=== PATIENT | female | born 1950 | race Caucasian/White ===

== ENCOUNTER 2018-01-28 01:20 | Inpatient (IN) | payer MEDICARE, OTHER ==
[~2018-01-28] VITALS: Ht 162.6 cm; Wt 91.6 kg
[2018-01-28] VITALS (19 sets, daily range): BP systolic 89–135; BP diastolic 61–81
[~2018-01-28 01:20] MED LIST: ACET-3160 PO; CALC1TAB32 PO; CHOL10005 PO; DOCU-416 PO; DULO60CA56 PO; ESOM40CA42 PO; GABA-549 PO; HYDR-2966 PO; LOSA50TA72 PO; MULT-61 PO; OM-31CAP12 PO; SIMV-54 PO
[2018-01-28] MEDS ORDERED: MIDAZOLAM 2 MG/2 ML VIAL IVP PRN (06:00)
[2018-01-28] MEDS ORDERED: NORMOSOL R SOLN(*) 1000 ML BAG 1,000 ML IV PRN (06:00)
[2018-01-28] MEDS ORDERED: ceFAZolin(*) 2GM/D5W 50ML 50 ML IVPB ONE (06:00)
[2018-01-28] MEDS ORDERED: ACETAMINOPHEN 500 MG TAB PO ONE (06:00)
[2018-01-28] MEDS ORDERED: LIDOCAINE/SOD BICARB 8.4% SYR ID ONE (06:00)
[2018-01-28] MEDS ORDERED: METOCLOPRAMIDE 10 MG/2 ML SDV ONE (06:13)
[2018-01-28] MEDS ORDERED: LIDOCAINE MPF 1% 5 ML VIAL ONE (06:13)
[2018-01-28] MEDS ORDERED: PROPOFOL EMUL(*) 10MG/ML 20 ML 20 ML ONE (06:13)
[2018-01-28] MEDS ORDERED: DEXAMETHASONE SOD PHOS 10MG/ML ONE (06:13)
[2018-01-28] MEDS ORDERED: ONDANSETRON 4 MG/2 ML VIAL ONE (06:13)
[2018-01-28] MEDS ORDERED: fentaNYL CITR 250 MCG/5 ML AMP ONE (06:16)
[2018-01-28] MEDS ORDERED: THROMBIN (BOVINE) 20,000 UNIT VIAL ONE (06:19)
[2018-01-28] MEDS ORDERED: ACETAMINOPHEN(*)1000 MG/100 ML 100 ML IVPB ONE (06:24)
[2018-01-28] MEDS ORDERED: PROPOFOL(*)1000 MG/100 ML VIAL 100 ML ONE (06:26)
[2018-01-28] MEDS ORDERED: ROCURONIUM BROM 10 MG/ML 10 ML ONE (07:00)
--- NOTE | 2018-01-28 09:23 | RADIOLOGY IMAGING REPORT ---
FACILITY: [facility] PATIENT NAME: Carla Edwards : 1950 MR: [id number] V: [id number] EXAM DATE: ORDERING PHYSICIAN: TANGELA HAILE TECHNOLOGIST[place] [facility] [place] : 1950 Visit/Account:[id number] Date of Sevice: 01/28/2018 Examination: Lumbar spine single view HISTORY: Laminectomy and lumbar fusion. FINDINGS: 3 lateral images are obtained portably of the lumbar spine intraoperatively. On the first i mage, a surgical instrument overlies the dorsal soft tissues at the L4 level. There is degenerative d isc disease at L4-L5 with grade 1 anterolisthesis. On the second image, additional surgical instrumen ts overlie the dorsal soft tissues with gauze material. An instrument overlies the pedicle and verteb ral body of L4. On the third image, there has been posterior instrumented fusion performed at L4-L5 w ith pedicle screws and vertical rods. The anterolisthesis has been reduced. IMPRESSION: 1. Multiple intraoperative lateral views of the lumbar spine during lumbar fusion procedure as report ed above. Report Dictated By: Nomi Reynolds at 01/28/2018 9:16 AM Report E-Signed By: Nomi Reynolds at 01/28/2018 9:19 AM WSN:[email or web address]
[2018-01-28] MEDS ORDERED: ROPIVACAINE 0.2% 20 ML VIAL ONE (09:27)
[2018-01-28] MEDS ORDERED: fentaNYL CITR 100 MCG/2 ML AMP ONE (10:12)
[2018-01-28] MEDS ORDERED: LR(*) 1000 ML BAG 1,000 ML IV PRN (10:40)
[2018-01-28] MEDS ORDERED: ACETAMINOPHEN 500 MG TAB PO PRN (10:55)
[2018-01-28] MEDS ORDERED: oxyCODONE HCL 5 MG CAP PO PRN (10:55)
[2018-01-28] MEDS ORDERED: DIAZEPAM 5 MG TAB PO PRN (10:55)
[2018-01-28] MEDS ORDERED: BISACODYL 10 MG SUPP PR PRN (10:55)
[2018-01-28] MEDS ORDERED: FLUSH 10 ML SYR IVP PRN (10:55)
[2018-01-28] MEDS ORDERED: BENZOCAINE/MENTHOL 1 EACH LOZG PO PRN (10:55)
[2018-01-28] MEDS ORDERED: ONDANSETRON 4 MG/2 ML VIAL IVP PRN (10:55)
[2018-01-28] MEDS ORDERED: MAGNESIUM HYDROXIDE* 30ML UDCP PO PRN (10:55)
[2018-01-28] MEDS ORDERED: diphenhydrAMINE 25 MG CAP PO PRN (10:55)
[2018-01-28] MEDS ORDERED: ACETAMINOPHEN(*)1000 MG/100 ML 100 ML IVPB PRN (10:55)
[2018-01-28] MEDS: HYDROmorphone HCL 2 MG/ML SDV IVP PRN (11:32)
--- NOTE | 2018-01-28 12:13 | Hospitalist Consultation ---
History of Present Illness Requesting Physician Dr. Dennis Reason for Consult Hypertension, Hyperlipidemia Chief Complaint s/p lumbar fusion History of Present Illness She was admitted s/p lumbar fusion. It is reported the surgery went well and without complication. History Problems: (1) GERD (gastroesophageal reflux disease) Status: Chronic (2) Hyperlipidemia Status: Chronic (3) Hypertension Status: Chronic (4) Vitiligo Home Meds Reported Medications Losartan Potassium (LOSARTAN POTASSIUM) 50 Mg Tablet, 50 MG PO HS 01/21/18 Gabapentin (GABAPENTIN) 300 Mg Capsule, 300 MG PO TID, CAPSULE 01/21/18 Multivitamin/Iron/Folic Acid (Centrum Women Tablet) 18 Mg Iron-400 Mcg Tablet, 1 TAB PO HS 01/21/18 Docusate Sodium (COLACE) 100 Mg Capsule, 100 MG PO BID, CAPSULE 01/21/18 Calcium Carb & Cit/Vitamin D3 (CALCIUM + D3 ER TABLET) 1 Each Tablet.er, 1 EACH PO BID 01/21/18 Cholecalciferol (Vitamin D3) (VITAMIN D3) 1,000 Unit Tablet, 2 TAB PO DAILY, TAB 01/21/18 Om-3/Epa/Dha/Fish Oil/Flax/E (THERA TEARS NUTRITION CAPSULE) 1 Each Capsule, 1 EACH PO DAILY, CAPSULE 01/21/18 Acetaminophen (ARTHRITIS PAIN RELIEF) 650 Mg Tablet.er, 2 TAB PO HS 01/21/18 Acetaminophen (ARTHRITIS PAIN RELIEF) 650 Mg Tablet.er, 3 TAB PO MORNING 01/21/18 Simvastatin (SIMVASTATIN) 40 Mg Tablet, 40 MG PO HS, TAB 01/21/18 Hydrochlorothiazide (HYDROCHLOROTHIAZIDE) 25 Mg Tablet, 1 TAB PO QDAY, TAB 01/21/18 Esomeprazole Magnesium (NEXIUM) 40 Mg Capsule.dr, 1 CAP PO QDAY, CAP 01/21/18 Duloxetine Hcl (CYMBALTA) 60 Mg Capsule.dr, 60 MG PO QDAY, #5 CAP 01/21/18 Allergies: Coded Allergies: clindamycin (Verified Allergy, Severe, RASH, 01/21/18) Hx Smoking: No Smoking Status: Never Smoker Caffeine Intake: Soda Caffeine/Cups Per Day: 3 Hx Alcohol Use: Yes (just social) Alcohol Used: Beer, Wine, Liquor Hx Substance Use Disorder: No Social Drug Use: Never History of IV Drug Use: No Review of Systems All Systems Reviewed/Normal: Yes, Except as Noted Exam Vital Signs Vital Signs Date Time Temp Pulse Resp B/P (MAP) Pulse Ox O2 Delivery O2 Flow Rate FiO2 01/28/18 11:45 14 106/67 (80) Nasal Cannula 3.0 01/28/18 11:30 78 93 01/28/18 11:10 97.5 General Appearance: Alert, Awake, No Acute Distress, Afebrile Neuro: No Gross deficits Cardiovascular: Regular Rate and Rhythm Respiratory: No Respiratory Distress, Clear to Auscultation GI: Abd Soft and Non-Tender Extremities: Warm, Perfused Psych: Alert & Oriented X3, Appropriate Mood & Affect Assessment and Plan Problems: (1) S/P lumbar fusion Status: Acute Assessment & Plan: Followed by Dr. Dennis. (2) Hypertension Status: Chronic Assessment & Plan: She is on chronic treatment with Valsartan. This has been restarted with hold parameters. (3) Hyperlipidemia Status: Chronic Assessment & Plan: She is on chronic treatment with Simvastatin. (4) GERD (gastroesophageal reflux disease) Status: Chronic Assessment & Plan: She is on chronic treatment with Nexium. She will be placed on Protonix during admission. Venous Thromboembolism Antithrombotics Is Pt On Any Antithrombotics?: No JOSE BRANTLEY Jan 28, 2018 12:13
[2018-01-28] MEDS ORDERED: VAL80 PO (12:15)
[2018-01-28] MEDS: GABAPENTIN 300 MG CAP PO SCH ×2 (14:12→20:28)
[2018-01-28] MEDS: APAP/HYDROCODONE 325/5 TAB PO PRN ×3 (14:13→22:21)
--- NOTE | 2018-01-28 14:48 | OPERATIVE REPORT 1 ---
EVENT DATE: January 28, 2018 SURGEON: Elias Dennis MD ANESTHESIOLOGIST: Nasir Oneil MD ANESTHESIA: General endotracheal cover remover: Valeriano El PA-C PREOPERATIVE DIAGNOSES 1. L4-L5 spondylolisthesis. 2. L4-L5 spinal stenosis. 3. Neurogenic claudication. POSTOPERATIVE DIAGNOSES 1. L4-L5 spondylolisthesis. 2. L4-L5 spinal stenosis. 3. Neurogenic claudication. PROCEDURES PERFORMED 1. L4-L5 laminectomy. 2. L4-L5 posterolateral instrumented fusion. INTRAVENOUS FLUIDS 2100 mL ESTIMATED BLOOD LOSS 140 mL IMPLANTS USED Reline pedicle screws 6.5 mm x 45 mm from [employer] times four, 40 mm connecting rods from [employer] times two, and locking caps from [employer] times four. SPECIMENS None. DRAINS None. COMPLICATIONS None. DISPOSITION Post-anesthesia care unit. INDICATIONS FOR SURGERY Ms. Edwards is a 67-year-old female with right lower extremity radiating pain , numbness, and tingling in an L5 distribution. She also had some back pain and noted some improvement in radiating symptoms with gabapentin, but was still symptomatic, affecting her lifestyle. Her physical examination revealed good range of motion and normal strength and sensation apart from some decreased sensation in the sural nerve distribution on the right. Diagnostic studies showed a grade 1 spondylolisthesis at L4-L5 and severe spinal stenosis at that level as well. The spondylolisthesis reduced to a degree when lying supine in the MRI. Secondary to failure of nonsurgical care and ongoing pain, Ms. Edwards was offered and elected to undergo an L4-L5 laminectomy and posterolateral instrumented fusion. Prior to surgery, I explained in detail to the patient the possible risks of surgery. These included the risks of bleeding, infection, damage to surrounding structures, nerve root injury, spinal fluid leak, meningitis, , blindness, sexual dysfunction, autonomic nervous system dysfunction, and other unforeseen medical and surgical complications. An understanding that spinal surgery is more predictive at improving extremity discomfort than axial spine pain was stressed. DESCRIPTION OF PROCEDURE On the date of surgery, the patient was met in the preoperative hold area, and all questions were answered. Her operative site was identified and marked by myself. The patient was brought in good condition to the operating room, and after succumbing to anesthesia, was placed in the prone position on a Jc table. Care was taken to maintain appropriate perfusion pressures during anesthesia. All bony protuberances and soft tissues were well padded in the standard fashion. Preoperative antibiotics were administered according to the appropriate timing schedule. At the conclusion of the procedure, sponge and needle counts were correct times two. Final timeout was undertaken by members of the operating team to confirm correct patient, correct levels, and correct surgery. We then made an incision over the intended spinal levels, and sharp dissection was carried out through the soft tissues to the posterior elements. Soft tissues were elevated off the posterior elements in a subperiosteal manner, and a lateral radiograph was obtained to confirm correct spinal levels. Self-retaining retractors were placed, and exposure out to the tips of the transverse processes of L4 and L5 was accomplished using the electrocautery device. Starting points for pedicle screws were identified at approximately the intersection of the pars interarticularis, the mid point of the transverse process, and the lateral aspect of the facet joint. Attention was then turned to the laminectomy. The spinous process of L4 was removed using a Leksell rongeur. A combination of the Leksell rongeur and a high-speed markos was used to thin the lamina of L4. A curved curette was used to undermine the superior insertion of the ligamentum flavum from the inferior aspect of the L4 lamina. [place]go elevator was used to separate any dural adhesions from surrounding bone and soft tissue prior to use of the Kerrison punch. Kerrisons #3 and #4 were used to perform a midline decompression. We then performed bilateral lateral recess decompressions, again using #4 and #3 Kerrisons. At the conclusion of the decompression, a [place] elevator was passed around the pedicles of L4 and L5 to confirm decompression of the nerve roots in the foramina as well as in the lateral recesses at the L4-L5 level. We then identified our starting points for pedicle screws bilaterally at L4 and L5. A 5 mm high-speed markos was used to decorticate the starting point. A Lenke -type probe was then advanced against resistance through the isthmus of the pedicle and into the vertebral body. A ball-tipped feeler was used to palpate the mcghee of the pedicles superiorly, inferiorly, medially, and laterally, as well as distally to confirm absence of bony breaching. Pedicle screws 6.5 mm x 45 mm were selected and placed bilaterally at L4 and L5 using this technique. Neurophysiologic monitoring was used to test the screws, which all tested well within the range of acceptable limits to confirm absence of bony breaching. Screw heads were adjusted appropriately, and 40 mm connecting rods were placed. A reduction maneuver was performed and locking caps applied. The wound was then irrigated with copious sterile saline solution, and meticulous hemostasis was obtained. The transverse processes of L4 and L5 were decorticated with a high-speed markos, and the local bone that we had milled down from the laminectomy was then placed in the lateral gutters bilaterally. The locking caps on the pedicle screws were then finally tightened with the torque-limiting device, and the wound was then closed in layers using interrupted sutures for the deep fascia, interrupted sutures for the subcutaneous tissue, and then a running subcuticular skin stitch. Sponge and needle counts were correct times two. POSTOPERATIVE CARE PLAN The patient will remain in the hospital until she meets discharge criteria. She will follow up with me in two weeks' time for wound check and examination. SARAH
[2018-01-28] MEDS: ceFAZolin(*) 2GM/D5W 50ML 50 ML IVPB SCH (17:11)
[2018-01-28] MEDS: DOCUSATE SODIUM 100 MG CAP PO SCH (20:28)
[2018-01-28] MEDS ORDERED: SIMVASTATIN 40 MG TAB PO SCH (21:00)
[2018-01-28] MEDS ORDERED: VALSARTAN 80 MG TAB PO SCH (21:00)
[2018-01-29] VITALS (8 sets, daily range): BP systolic 87–106; BP diastolic 63–73; Ht 162.6 cm; Wt 91.6 kg
[2018-01-29] MEDS: HYDROmorphone HCL 2 MG/ML SDV IVP PRN (01:09)
[2018-01-29] MEDS: ceFAZolin(*) 2GM/D5W 50ML 50 ML IVPB SCH ×2 (01:10→09:26)
[2018-01-29] MEDS: APAP/HYDROCODONE 325/5 TAB PO PRN ×2 (05:32→10:38)
[2018-01-29] MEDS ORDERED: LOR5/325 PO (07:36)
[2018-01-29] MEDS ORDERED: DIA5 PO (07:36)
[2018-01-29] MEDS ORDERED: DOCU240C84 PO (07:38)
[2018-01-29] MEDS ORDERED: PANTOPRAZOLE SOD 40 MG TABEC PO SCH (09:00)
[2018-01-29] MEDS ORDERED: DULoxetine HCL 30 MG CAPCR PO SCH (09:00)
[2018-01-29] MEDS: DOCUSATE SODIUM 100 MG CAP PO SCH (09:26)
[2018-01-29] MEDS: GABAPENTIN 300 MG CAP PO SCH (09:27)
[2018-01-29] MEDS ORDERED: LOSA50TA72 PO (09:59)
--- NOTE | 2018-01-29 10:09 | RADIOLOGY IMAGING REPORT ---
FACILITY: [facility] [place] PATIENT NAME: Carla Edwards : 1950 MR: [id number] V: [id number] EXAM DATE: ORDERING PHYSICIAN: TANGELA HAILE TECHNOLOGIST: Location: [facility] [place] Patient: Carla Edwards : 1950 Visit/Account:[id number] Date of Sevice: 01/29/2018 LUMBAR SPINE 2 OR 3 VIEW Indication: status post lami Comparison: Lumbar spine radiograph from the operating room 01/28/2018 Findings: There are postoperative changes from a posterior instrumentation and fusion hardware at L4 and L5. Remaining vertebral bodies and posterior elements are intact. There is mild anterolisthesis L5-S1, measuring 4 mm. IMPRESSION: Postoperative changes with posterior instrumentation and fusion hardware at L4-5. Report Dictated By: George Escalante at 01/29/2018 10:03 AM Report E-Signed By: George Escalante at 01/29/2018 10:04 AM WSN:[id number]
--- NOTE | 2018-01-29 11:20 | Hospitalist Progress Note ---
Subjective Progress Notes Subjective She has no complaints this morning. She had no acute events overnight. Patient Complains of: Cardiovascular: No: Chest Pain Respiratory: No: Shortness of Breath Physical Exam Vital Signs Date Time Temp Pulse Resp B/P (MAP) Pulse Ox O2 Delivery O2 Flow Rate FiO2 01/29/18 08:41 82 01/29/18 08:11 Room Air 01/29/18 07:59 2.0 01/29/18 07:00 68 106/65 (79) 01/29/18 05:00 98.6 01/28/18 12:00 12 Intake and Output 01/30/18 01:00 Intake Total 300 ml Balance 300 ml Intake Oral 250 ml IV Total 50 ml # Voids 1 General Appearance: Alert, Awake, No Acute Distress, Afebrile Neuro: No Gross deficits Cardiovascular: Regular Rate and Rhythm Respiratory: No Respiratory Distress, Clear to Auscultation Psych: Alert & Oriented X3, Appropriate Mood & Affect Assessment and Plan Problems: (1) S/P lumbar fusion Status: Acute Assessment & Plan: Followed by Dr. Dennis. (2) Hypertension Status: Chronic Assessment & Plan: She is on chronic treatment with Losartan and hydrochlorothiazide. This has been restarted with hold parameters. She was given detailed instructions verbally and written for her blood pressure medications. She will check her blood pressure daily at home. If her systolic blood pressure reaches 140, she will then start Losartan. She will follow up with Primary Care Physician next week or sooner for further directions of hypertension medications. (3) Hyperlipidemia Status: Chronic Assessment & Plan: She is on chronic treatment with Simvastatin. (4) GERD (gastroesophageal reflux disease) Status: Chronic Assessment & Plan: She is on chronic treatment with Nexium. Exam Sepsis Risk: No Definite Risk JOSE BRANTLEY RESIDENTIAL COORDINATOR Jan 29, 2018 11:20
== END 2018-01-29 11:45 | disposition home or self-care (01) | DRG 460 ==
LOC: OR 01:20 → MED 11:10
PROVIDERS: ADMIT Orthopaedic Surgery; ATTEND Orthopaedic Surgery
PROC: 0SG0071 Fusion of Lumbar Vertebral Joint with Autologous Tissue Substitute, Posterior Approach, Posterior Column, Open Approach (ICD-10-PCS; principal; 2018-01-28 06:59)
DX: M43.16 Spondylolisthesis, lumbar region (principal); M48.062 Spinal stenosis, lumbar region with neurogenic claudication; M51.16 Intervertebral disc disorders with radiculopathy, lumbar region; I10 Essential (primary) hypertension; G47.33 Obstructive sleep apnea (adult) (pediatric); K21.9 Gastro-esophageal reflux disease without esophagitis; E78.5 Hyperlipidemia, unspecified; L80 Vitiligo; Z88.1 Allergy status to other antibiotic agents; Z90.49 Acquired absence of other specified parts of digestive tract
CPT/HCPCS: 36415; 72020; 72100; 86850; 86870; 86900; 86901; 86922; 97161; J0131; J0690; J1100; J1170; J2001; J2405; J2704; J2765; J2795; J3010